=== PATIENT | female | born 1950 | race Caucasian/White ===

== ENCOUNTER → 2016-12-17 | Outpatient (CLI) | payer OTHER ==
[~2016-12-17] MED LIST: CHOL100010 PO; HYDR-5688 PO; MULT-506 PO; ZOLP12.5 PO; ZOLP6.252 PO
== END | disposition home or self-care (01) ==
LOC: C.RDSM 14:55
PROVIDERS: ATTEND Orthopaedic Surgery Sports Medicine
DX: Z09 Encounter for follow-up examination after completed treatment for conditions other than malignant neoplasm (principal); M25.561 Pain in right knee; Z96.651 Presence of right artificial knee joint

== ENCOUNTER → 2017-02-01 | Day surgery (SDC) | payer OTHER ==
[2017-01-21 10:46] VITALS: Ht 175.3 cm; Wt 95.5 kg
[~2017-02-01] VITALS: Ht 175.3 cm; Wt 95.5 kg
[~2017-02-01] MED LIST changes: +500ML BSS 0.3ML EPI 1:1000PF IRRIG ONE; +ACETAMINOPHEN 325 MG TAB PO PRN; +AMVISC PLUS 0.8ML SYRINGE INT OCU ONE; +ATROPINE SULFATE 0.1 MG/ML 5ML SYR IV PRN; +BRIMONIDINE TART 0.2% OP SOLN PER DROP CHARGE ONE; +BSS FLUSH ONE; -CHOL100010 PO; +ENDOCOAT 0.85ML SYRINGE INT OCU ONE; +EpHEDrine SULFATE INJ 50 MG/ML AMP IV PRN; +EpINEphrine INJ 1MG/ML AMP 1 MG/ML AMP ONE; +FENTANYL CITRATE INJ 50 MCG/1 ML 2 ML VIAL ONE; -HYDR-5688 PO; +LACTATED RINGER'S 1000ML 500 ML IV SCH; +LIDOCAINE 4% OP SOLN DROP CHARGE ONE; +LIDOCAINE 4% OP SOLN DROP CHARGE OPR SCH; +LIDOCAINE HCL 1% MPF 2 ML VIAL ONE; +MIDAZOLAM HCL 1 MG/ML 2ML VIAL ONE; +MOXIFLOXACIN OPH SOLN PER DROP CHARGE ONE; +POVIDONE-IODINE OP SOLN 30 ML BTL ONE; +PROPARACAINE 0.5% OP SOLN PER DROP CHARGE OPR SCH; +TOBRAMYCIN/DEXAMETHASONE OPH OINT PER APPLN CHARGE ONE; -ZOLP12.5 PO
[2017-02-01] MEDS: PHENYLEPHRINE HCL 2.5% OP SOLN PER DROP CHARGE OPR SCH ×2 (08:01→08:06)
[2017-02-01] MEDS: TROPICAMIDE 1% OP SOLN PER DROP CHARGE OPR SCH ×2 (08:02→08:07)
[2017-02-01] MEDS: CYCLOPENTOLATE HCL 1% OP SOLN PER DROP CHARGE OPR SCH ×2 (08:03→08:08)
[2017-02-01] MEDS: KETOROLAC 0.5% OP SOLN PER DROP CHARGE OPR SCH ×2 (08:04→08:09)
[2017-02-01] MEDS: MOXIFLOXACIN OPH SOLN PER DROP CHARGE OPR SCH ×2 (08:05→08:15)
--- NOTE | 2017-02-01 08:40 | History & Physical Bridge - SC ---
H&P Re-Evaluation Bridge Note: I have examined the patient, reviewed the History & Physical and in the interval since the performance of the History & Physical I have noted the following changes of clinical significance: No changes noted
--- NOTE | 2017-02-01 09:30 | Discharge Instructions-SurgCtr ---
Discharge Instructions Date of Service Feb 01, 2017. Visit Reason for Visit: Right Eye Cataract Discharge Discharge Diagnosis / Problem: cataract right eye Discharge Goals Goal(s): Improve function Activity Recommendations Activity Limitations: per Instructions/Follow-up section Lifting Limitations: no more than 5 pounds Anesthesia . Post Anesthesia Instructions: If you have had General Anesthesia or IV Sedation: * Do not drive today. * Resume driving when surgeon permits. * Do not make important decisions or sign legal documents today. * Call surgeon for: 1. Temperature elevations greater than 101 degrees F. 2. Uncontrollable pain. 3. Excessive bleeding. 4. Persistent nausea and vomiting. 5. Medication intolerance (nausea, vomiting or rash). * For nausea and vomiting use only clear liquids such as: tea, soda, bouillon until nausea subsides, then gradually increase diet as tolerated. * If you have any concerns or questions, call your surgeon's office. If physician is unavailable and it is an emergency, call 911 or go to the nearest emergency room. . Instructions / Follow-Up Instructions / Follow-Up ACTIVITY RECOMMENDATIONS: * Light activities * You may walk outside, read, watch television. * Mild irritation and blurred vision are common for the first few days, redness around the white part of the eye is common. MEDICATIONS: Resume previous medications unless instructed otherwise by your surgeon. Eye drops (today and tomorrow): Cipro - one drop in operative eye every 2 hours while awake Prednisolone 1% - one drop in operative eye every 2 hours while awake Ketorolac - one drop in operative eye every 2 hours while awake SPECIAL CARE INSTRUCTIONS: * If any problems or concerns, please call Dr. Kevin's office at . * Keep plastic shield taped over eye to sleep at night. * Keep plastic shield taped over eye except to administer eye drops. * Keep plastic shield on until office visit the following day. FOLLOW UP VISIT: Follow-up with Dr. Kevin in the [place] office as scheduled. If not already scheduled, please call the office at . Diet Recommendations Home Diet: resume previous diet Procedures Procedures Performed: Right Cataract Phacoemulsification With Intraocular Lens Implant Pending Studies Studies pending at discharge: no Medical Emergencies . Who to Call and When: Medical Emergencies: If at any time you feel your situation is an emergency, please call 911 immediately. . Non-Emergent Contact Non-Emergency issues call your: Fire And Explosion Investigator . . "Provider Documentation" section prepared by Francisco Kevin.
--- NOTE | 2017-02-01 09:30 | [facility] Post Operative Brief Note ---
Immediate Operative Summary Operative Date Feb 01, 2017. Pre-Operative Diagnosis Cataract right eye Post-Operative Diagnosis same Procedure(s) Performed Right Cataract Phacoemulsification With Intraocular Lens Implant Surgeon Dr Kevin Steam Table Associate Surgeon(s) 0 Estimated Blood Loss 0 Findings cataract right eye Specimens 0 Complication(s) None Disposition Recovery Room / PACU
[2017-02-01 09:33] VITALS: TEMP 36.1
--- NOTE | 2017-02-01 09:34 | Anesthesia Progress Nt - [facility] ---
Anesthesia Post Op Note Date & Time Feb 01, 2017 at 09:34 Vital Signs Pain Intensity: 0 Vital Signs Past 12 Hours Date Time Temp Pulse Resp B/P Pulse Ox O2 Delivery O2 Flow Rate FiO2 02/01/17 07:53 36.3 59 16 108/71 98 Room Air Notes Mental Status: alert / awake / arousable, participated in evaluation Pt Amnestic to Procedure: Yes Nausea / Vomiting: adequately controlled Pain: adequately controlled Airway Patency, RR, SpO2: stable & adequate BP & HR: stable & adequate Hydration State: stable & adequate Anesthetic Complications: no major complications apparent
[2017-02-01 10:22] VITALS: BP 102/67; PULSE 60; O2SAT 96
--- NOTE | 2017-02-01 10:30 | OPERATIVE REPORT ---
DATE OF OPERATION: 02/01/2017 PREOPERATIVE DIAGNOSIS: Cataract, right eye. POSTOPERATIVE DIAGNOSIS: Cataract, right eye. PROCEDURE: Phacoemulsification cataract extraction with intraocular lens placement, right eye. SURGEON: Dr. Kevin. COMPLICATIONS: None. ESTIMATED BLOOD LOSS: None. ANESTHESIA: Topical with sedation. DESCRIPTION OF PROCEDURE: After informed consent was obtained in the holding area the patient was wheeled back to the Operating Room where cardiac monitoring leads and oxygen by nasal cannula was administered by Anesthesia. Gentle IV sedation was given, and the patient's right eye was prepped and draped in usual sterile fashion. A wire lid speculum was placed into the right eye and the operating microscope was swung into position. Using 0.12 forceps and a Supersharp blade a paracentesis port was made 3 o'clock hours away from the 12 o'clock position of patient's right eye. 1% non-preserved Lidocaine was then injected into the anterior chamber for anesthesia. A 2.2 mm keratotome blade was then used to make a shelved clear corneal incision at the 12 o'clock position of her right eye. Amvisc was injected into the anterior chamber and a cystotome and Utrata forceps were used to perform a curvilinear capsulorrhexis. BSS on a hydrodissection cannula was used to hydrodissect the lens nucleus away from the capsular bag. The phacoemulsification handpiece was then used in a stop and chop fashion to remove the lens nucleus. The irrigation and aspiration handpiece was then used to remove the residual cortical material. Amvisc was injected into the capsular bag and anterior chamber and a Bausch \T\ Lomb MX60 20.5 Diopter intraocular lens was injected into the capsular bag. Irrigation and aspiration handpiece was used to remove the residual viscoelastic material. The wounds were hydrated and noted to be watertight. The wire lid speculum was removed from the eye. Vigamox, Brimonidine, and TobraDex ointment were placed on the eye and it was shielded. It should be noted that EndoCoat was used during the case to protect the cornea endothelium. DISPOSITION: The patient tolerated the procedure well and was wheeled to the post anesthesia care unit in stable condition. I attest to the content of the Intraoperative Record and any orders documented therein. Any exceptions are noted below. I attest to the content of the Intraoperative Record and any orders documented therein. Any exceptio ns are noted below.
== END | disposition home or self-care (01) ==
LOC: X.SURG 07:42
PROVIDERS: ATTEND Ophthalmology
DX: H25.11 Age-related nuclear cataract, right eye (principal); Z87.891 Personal history of nicotine dependence

== ENCOUNTER → 2017-02-17 | Outpatient (CLI) | payer OTHER ==
[~2017-02-17] MED LIST changes: -500ML BSS 0.3ML EPI 1:1000PF IRRIG ONE; -ACETAMINOPHEN 325 MG TAB PO PRN; -AMVISC PLUS 0.8ML SYRINGE INT OCU ONE; -ATROPINE SULFATE 0.1 MG/ML 5ML SYR IV PRN; -BRIMONIDINE TART 0.2% OP SOLN PER DROP CHARGE ONE; -BSS FLUSH ONE; -ENDOCOAT 0.85ML SYRINGE INT OCU ONE; -EpHEDrine SULFATE INJ 50 MG/ML AMP IV PRN; -EpINEphrine INJ 1MG/ML AMP 1 MG/ML AMP ONE; -FENTANYL CITRATE INJ 50 MCG/1 ML 2 ML VIAL ONE; -LACTATED RINGER'S 1000ML 500 ML IV SCH; -LIDOCAINE 4% OP SOLN DROP CHARGE ONE; -LIDOCAINE 4% OP SOLN DROP CHARGE OPR SCH; -LIDOCAINE HCL 1% MPF 2 ML VIAL ONE; -MIDAZOLAM HCL 1 MG/ML 2ML VIAL ONE; -MOXIFLOXACIN OPH SOLN PER DROP CHARGE ONE; -POVIDONE-IODINE OP SOLN 30 ML BTL ONE; -PROPARACAINE 0.5% OP SOLN PER DROP CHARGE OPR SCH; -TOBRAMYCIN/DEXAMETHASONE OPH OINT PER APPLN CHARGE ONE
--- NOTE | 2017-02-17 15:55 | MAMMOGRAPHY REPORT ---
BILATERAL DIGITAL SCREENING MAMMOGRAM WITH CAD: 02/17/2017 CLINICAL HISTORY: Routine screening. Patient has no complaints. TECHNIQUE: Bilateral CC and MLO views were obtained. Current study was also evaluated with a Comput er Aided Detection (CAD) system. COMPARISON: Comparison is made to exams dated: 02/04/2016 mammogram, 01/16/2014 mammogram, 01/21/2015 m ammogram, 02/11/2012 mammogram - [facility], 01/02/2011 mammogram, and 08/02/2009 [facility]. BREAST COMPOSITION: The tissue of both breasts is heterogeneously dense, which may obscure small ma sses. FINDINGS: There are scattered stable benign rim calcifications and minimal vascular calcifications i n the breasts. No new suspicious mass, architectural distortion or cluster of microcalcifications i s seen. IMPRESSION: ACR BI-RADS CATEGORY 1: NEGATIVE There is no mammographic evidence of malignancy. A 1 year screening mammogram is recommended. The p atient will receive written notification of the results. Approximately 10% of breast cancers are not detected with mammography. A negative mammographic repor t should not delay biopsy if a clinically suggestive mass is present. Blanca Dinero M.D. ay/:02/17/2017 12:58:39 Implementation Architect: Celso LAZAR(Krystin)(), [facility] letter sent: Normal 1/2 BI-RADS Code: ACR BI-RADS Category 1: Negative
== END | disposition home or self-care (01) ==
LOC: C.MAMM 11:45
PROVIDERS: ATTEND Family Medicine
DX: Z12.31 Encounter for screening mammogram for malignant neoplasm of breast (principal)

== ENCOUNTER → 2017-06-11 | Outpatient (CLI) | payer OTHER ==
--- NOTE | 2017-06-11 10:13 | DIAGNOSTIC IMAGING REPORT ---
ABDOMEN COMPLETE (US) CLINICAL HISTORY: 67 years-old Female with acute diarrhea TECHNIQUE: Multiple real time sonographic images of the abdomen were obtained assessing child-scale appearance. FINDINGS: PANCREAS: The pancreas is partially obscured by bowel gas. The visualized portions of the pancreas are normal without focal lesion or pancreatic duct dilatation. LIVER: The liver demonstrates increased echogenicity suggesting fatty infiltration measuring up to 18.2 cm in length. There is no intrahepatic bile duct dilation, focal lesion, or contour nodularity. There is no ascites. GALLBLADDER: The gallbladder is fluid-filled without cholelithiasis, wall thickening, or pericholecystic fluid. Negative sonographic Cortez's sign. The common bile duct measures 0.3 cm. RIGHT KIDNEY: The right kidney measures 9.6 x 3.9 x 5.1 cm. The parenchymal echotexture and cortical thickness are normal. No nephrolithiasis or hydronephrosis. LEFT KIDNEY: The left kidney measures 9.7 x 5.8 x 5.0 cm. The parenchymal echotexture and cortical thickness are normal. No nephrolithiasis or hydronephrosis. SPLEEN: The spleen measures 8.3 cm and is normal in echotexture. No focal lesions are identified. VASCULATURE: The visualized aorta and inferior vena cava are sub-visualized although appear normal as seen. IMPRESSION: 1. Fatty infiltration of the liver. 2. No evidence of cholelithiasis or acute cholecystitis. 3. No biliary ductal dilatation. The above report was generated using voice recognition software. It may contain grammatical, syntax or spelling errors. Electronically signed by: Edi Song M.D. 06/11/2017 10:12 AM Dictated Date/Time: 06/11/2017 10:08 AM
== END | disposition home or self-care (01) ==
LOC: C.ULTR 08:59
PROVIDERS: ATTEND Family Medicine
DX: R19.7 Diarrhea, unspecified (principal); R10.11 Right upper quadrant pain; K76.0 Fatty (change of) liver, not elsewhere classified

== ENCOUNTER → 2017-12-20 | Outpatient (CLI) | payer OTHER | END | disposition home or self-care (01) | LOC: C.MAMM 11:13 | PROVIDERS: ATTEND Family Medicine | DX: Z13.820 Encounter for screening for osteoporosis (principal); M85.852 Other specified disorders of bone density and structure, left thigh ==

== ENCOUNTER → 2018-03-28 | Day surgery (SDC) | payer OTHER ==
[2018-03-14 08:16] VITALS: Ht 175.3 cm; Wt 85.5 kg
[~2018-03-28] VITALS: Ht 175.3 cm; Wt 85.5 kg
[~2018-03-28] MED LIST changes: +500ML BSSPLUS 0.5ML EPI1:1000 IRRIG ONE; +ACETAMINOPHEN 325 MG TAB PO PRN; +ATROPINE SULFATE 0.1 MG/ML 5ML SYR IV PRN; +ATROPINE SULFATE 1% OP OINT PER APPLICATION CHARGE ONE; +BSS FLUSH ONE; +BUPIVACAINE HCL 0.75% 10 ML AMP/VIAL ONE; +CEFAZOLIN SOD 1 GM VIAL ONE; +DEXAMETHASONE SOD INJ 4 MG/ML VIAL ONE; +EpHEDrine SULFATE INJ 50 MG/ML AMP IV PRN; +EpINEphrine INJ 1MG/ML AMP 1 MG/ML AMP ONE; +FENTANYL CITRATE INJ 50 MCG/1 ML 2 ML VIAL IV PRN; +FENTANYL CITRATE INJ 50 MCG/1 ML 2 ML VIAL ONE; +HYALURONIDASE HUMAN 150 UNIT/ML INJ ONE; +LACTATED RINGER'S 1000ML 500 ML IV SCH; +LIDOCAINE HCL 2% 2 ML VIAL (20MG/ML) ONE; +MIDAZOLAM HCL 1 MG/ML 2ML VIAL ONE; +NEOMYCIN/POLYMYX/DEXAMETH OP OINT PER APP CHARGE ONE; +OCUCOAT 1 ML SOLN IO ONE; +ONDANSETRON INJ 2 MG/ML 2 ML VIAL IV PRN; +ONDANSETRON INJ 2 MG/ML 2 ML VIAL ONE; +POVIDONE-IODINE OP SOLN (SURGERY CNTR CHARGING ONLY) ONE; +PROPARACAINE 0.5% OP SOLN PER DROP CHARGE OPL SCH; +PROPOFOL IV EMULSION 10 MG/ML 20 ML VIAL ONE; +TIMOLOL MALEATE 0.5% OP SOLN PER DROP CHARGE ONE
[2018-03-28] MEDS: PHENYLEPHRINE HCL 2.5% OP SOLN PER DROP CHARGE OPL SCH ×2 (07:23→07:28)
[2018-03-28] MEDS: TROPICAMIDE 1% OP SOLN PER DROP CHARGE OPL SCH ×2 (07:24→07:29)
--- NOTE | 2018-03-28 07:55 | History & Physical Bridge - [place] ---
H&P Re-Evaluation Bridge Note: pt has visually significant vitreous opacities left eye and is having vitrectomy left eye. I have examined the patient, reviewed the History & Physical and in the interval since the performance of the History & Physical I have noted the following changes of clinical significance: No changes noted
--- NOTE | 2018-03-28 08:40 | Discharge Instructions-SurgCtr ---
Discharge Instructions Date of Service March 28, 2018. Visit Reason for Visit: Vitreous Opacities Discharge Discharge Diagnosis / Problem: same Discharge Goals Goal(s): Improve function Activity Recommendations Activity Limitations: per Instructions/Follow-up section Anesthesia . Post Anesthesia Instructions: If you have had General Anesthesia or IV Sedation: * Do not drive today. * Resume driving when surgeon permits. * Do not make important decisions or sign legal documents today. * Call surgeon for: 1. Temperature elevations greater than 101 degrees F. 2. Uncontrollable pain. 3. Excessive bleeding. 4. Persistent nausea and vomiting. 5. Medication intolerance (nausea, vomiting or rash). * For nausea and vomiting use only clear liquids such as: tea, soda, bouillon until nausea subsides, then gradually increase diet as tolerated. * If you have any concerns or questions, call your surgeon's office. If physician is unavailable and it is an emergency, call 911 or go to the nearest emergency room. . Instructions / Follow-Up Instructions / Follow-Up * May take Tylenol if needed for discomfort. * Do NOT remove eye shield. * NO straining, heavy lifting (>15 pounds) or bending below waist. * Avoid getting water or soap directly into operative eye. * Do NOT rub eye. If you experience increasing eye pain not relieved by medication, please contact us immediately at [phone]. If you are unable to reach someone at the above number, call [phone] and ask to speak with the EYE DOCTOR PROCESS CHEMIST. Inform them that you are a Dr. Oneal patient who had recent surgery. Diet Recommendations Home Diet: resume previous diet Pending Studies Studies pending at discharge: no Medical Emergencies . Who to Call and When: Medical Emergencies: If at any time you feel your situation is an emergency, please call 911 immediately. . Non-Emergent Contact Non-Emergency issues call your: J2Ee Architect . . "Provider Documentation" section prepared by Finn Oneal. .
--- NOTE | 2018-03-28 08:40 | [facility] Operative Report ---
Operative Report Date of Service March 28, 2018. Operative Report PREOPERATIVE DIAGNOSIS: Visually significant vitreous opacities, left eye. ICD10 CODE: H43.392 POSTOPERATIVE DIAGNOSIS: same. PROCEDURE: 1. Pars plana vitrectomy, 23 gauge left eye. CPT CODE: 04090 SURGEON: Finn Oneal D.O. COMPLICATIONS: None. ESTIMATED BLOOD LOSS: None. SPECIMENS: None. ANESTHESIA: Retrobulbar block and MAC. INDICATIONS FOR PROCEDURE: Surgery is indicated to decrease risk of vision loss and potentially improve vision. CONSENT: The risks, benefits and alternatives were discussed with the patient including but not limited to decreased visual acuity, failure to achieve desired results, loss of the eye, infection, pain, glaucoma, lens changes, retinal tears, retinal detachment, the need for more procedures, drooping of the eyelid, blindness, and double vision. The patient is aware of risks and consents to the surgery. Consent is signed and on the chart. OPERATION AND FINDINGS: The patient was brought to the operating room where the patient was identified by name, date, and medical record number. The surgical site was confirmed with the informed written consent. The patient was sedated by the anesthesiology team after which a 50:50 mixture of 2% lidocaine and 0.75% bupivacaine with hyaluronidase was administered in a standard retrobulbar fashion. A total of 4 ml was administered without difficulty. The patient was then prepped and draped in the usual sterile manner for retinal surgery. A wire lid speculum was placed and an Vivek 23-gauge trocar cannula system was employed. The inferior temporal trocar cannula was first placed in an angled fashion 3.75mm posterior to the surgical limbus and the infusion cannula was inserted into this cannula after which the intravitreal position was verified prior to turning the infusion on. Two more trocar cannulas were then inserted in an angled fashion, one in the superior temporal, and one in the superior nasal quadrant both 3.75mm posterior to the surgical limbus. A light pipe and vitrector were then introduced into the eye and the BIOM wide angle viewing system was brought into place. Posterior inspection revealed visually significant vitreous opacities centrally. There was a previously treated retinal tear superiorly. Standard core vitrectomy was performed and the vitreous was insured to be totally detached from the posterior pole with the aid of the vitrector. The central vitreous was cleared with the vitrector. At this point scleral depression was performed for 360 degrees and no retinal tears or detachments were noted. The trocar cannulas were then removed and found to be water tight. The intraocular pressure was found to be within normal limits by palpation and subconjunctival injections of Kefzol and dexamethasone were administered inferiorly and superiorly. The wire lid speculum was removed. Maxitrol was applied to the surface of the eye. A light patch and shield were taped over the surface of the eye and the patient left the Operating Room in stable condition having tolerated the procedure well. DISPOSITION: The patient has an appointment the following morning in the Ophthalmology Clinic. The patient is to call immediately if there are any problems overnight. I attest to the content of the Intraoperative Record and any orders documented therein. Any exceptions are noted below.
[2018-03-28 08:42] VITALS: TEMP 36.7
--- NOTE | 2018-03-28 08:50 | Anesthesia Progress Nt - [facility] ---
Anesthesia Post Op Note Date & Time March 28, 2018 at 08:50 Vital Signs Pain Intensity: 0 Vital Signs Past 12 Hours Date Time Temp Pulse Resp B/P (MAP) Pulse Ox O2 Delivery O2 Flow Rate FiO2 03/28/18 08:42 36.7 59 16 122/73 (89) 95 Room Air 03/28/18 07:12 36.7 66 14 102/59 (73) 98 Room Air Notes Mental Status: alert / awake / arousable, participated in evaluation Pt Amnestic to Procedure: Yes Nausea / Vomiting: adequately controlled Pain: adequately controlled Airway Patency, RR, SpO2: stable & adequate BP & HR: stable & adequate Hydration State: stable & adequate Anesthetic Complications: no major complications apparent
[2018-03-28 09:06] VITALS: BP 100/64; PULSE 52; O2SAT 100
== END | disposition home or self-care (01) ==
LOC: X.SURG 06:52
PROVIDERS: ATTEND Ophthalmology
DX: H43.392 Other vitreous opacities, left eye (principal); M19.90 Unspecified osteoarthritis, unspecified site; E78.5 Hyperlipidemia, unspecified; F32.9 Major depressive disorder, single episode, unspecified; Z88.5 Allergy status to narcotic agent; Z90.710 Acquired absence of both cervix and uterus; Z98.41 Cataract extraction status, right eye; Z98.42 Cataract extraction status, left eye; Z91.041 Radiographic dye allergy status; Z86.72 Personal history of thrombophlebitis; Z96.651 Presence of right artificial knee joint; Z86.711 Personal history of pulmonary embolism

== ENCOUNTER → 2018-04-04 | Outpatient (CLI) | payer OTHER ==
[~2018-04-04] MED LIST changes: -500ML BSSPLUS 0.5ML EPI1:1000 IRRIG ONE; -ACETAMINOPHEN 325 MG TAB PO PRN; -ATROPINE SULFATE 0.1 MG/ML 5ML SYR IV PRN; -ATROPINE SULFATE 1% OP OINT PER APPLICATION CHARGE ONE; -BSS FLUSH ONE; -BUPIVACAINE HCL 0.75% 10 ML AMP/VIAL ONE; -CEFAZOLIN SOD 1 GM VIAL ONE; -DEXAMETHASONE SOD INJ 4 MG/ML VIAL ONE; -EpHEDrine SULFATE INJ 50 MG/ML AMP IV PRN; -EpINEphrine INJ 1MG/ML AMP 1 MG/ML AMP ONE; -FENTANYL CITRATE INJ 50 MCG/1 ML 2 ML VIAL IV PRN; -FENTANYL CITRATE INJ 50 MCG/1 ML 2 ML VIAL ONE; -HYALURONIDASE HUMAN 150 UNIT/ML INJ ONE; -LACTATED RINGER'S 1000ML 500 ML IV SCH; -LIDOCAINE HCL 2% 2 ML VIAL (20MG/ML) ONE; -MIDAZOLAM HCL 1 MG/ML 2ML VIAL ONE; -NEOMYCIN/POLYMYX/DEXAMETH OP OINT PER APP CHARGE ONE; -OCUCOAT 1 ML SOLN IO ONE; -ONDANSETRON INJ 2 MG/ML 2 ML VIAL IV PRN; -ONDANSETRON INJ 2 MG/ML 2 ML VIAL ONE; -POVIDONE-IODINE OP SOLN (SURGERY CNTR CHARGING ONLY) ONE; -PROPARACAINE 0.5% OP SOLN PER DROP CHARGE OPL SCH; -PROPOFOL IV EMULSION 10 MG/ML 20 ML VIAL ONE; -TIMOLOL MALEATE 0.5% OP SOLN PER DROP CHARGE ONE
--- NOTE | 2018-04-04 15:25 | MAMMOGRAPHY REPORT ---
BILATERAL DIGITAL SCREENING MAMMOGRAM TOMOSYNTHESIS WITH CAD: 04/04/2018 CLINICAL HISTORY: Routine screening. Patient has no complaints. TECHNIQUE: Breast tomosynthesis in addition to standard 2D mammography was performed. Current study was also evaluated with a Computer Aided Detection (CAD) system. COMPARISON: Comparison is made to exams dated: 02/17/2017 mammogram, 02/04/2016 mammogram, 01/21/2015 ma mmogram, 01/16/2014 mammogram, and 02/11/2012 mammogram - [facility]. BREAST COMPOSITION: The tissue of both breasts is heterogeneously dense, which may obscure small mas ses. FINDINGS: The parenchymal pattern is similar to prior mammograms. There are a few scattered and loo sely grouped stable punctate microcalcifications bilaterally. No developing mass, architectural dist ortion or cluster of suspicious microcalcifications is seen. IMPRESSION: ACR BI-RADS CATEGORY 2: BENIGN There is no mammographic evidence of malignancy. A 1 year screening mammogram is recommended. The pa tient will receive written notification of the results. Approximately 10% of breast cancers are not detected with mammography. A negative mammographic report should not delay biopsy if a clinically suggestive mass is present. Blanca Dinero M.D. ay/:04/04/2018 10:02:45 Mountain Guide: Lulu GRIFFIN)(Geremias), [facility] letter sent: Normal 1/2 BI-RADS Code: ACR BI-RADS Category 2: Benign
== END | disposition home or self-care (01) ==
LOC: C.MAMM 08:10
PROVIDERS: ATTEND Family Medicine
DX: Z12.31 Encounter for screening mammogram for malignant neoplasm of breast (principal)

== ENCOUNTER 2021-04-16 11:27 | Observation (INO) ==
[2021-04-16] MEDS ORDERED: SODIUM CHLORIDE 0.9% 1000ML 1,000 ML IV ONE (12:07)
[2021-04-16 12:09] LABS: Basophils # (auto) 0.03 K/uL (0-0.2); Basophils % (auto) 0.3 %; Eosinophils # (auto) 0.18 K/uL (0-0.5); Eosinophils % (auto) 1.9 %; Hematocrit (blood only) 41.9 % (37-47); Hemoglobin 14.6 g/dL (12.0-16.0); Immature Granulocytes # (auto) 0.02 K/uL (0.00-0.02); Immature Granulocytes % (auto) 0.2 %; Lymphocytes # (auto) 1.94 K/uL (1.2-3.4); Mean Corpuscular Hemoglobin 33.3 pg (25-34); Mean Corpuscular Hgb Conc 34.8 g/dL (32-36); Mean Corpuscular Volume 95.4 fL (80-100); Mean Platelet Volume 10.3 fL (7.4-10.4); Monocytes # (auto) 0.55 K/uL (0.11-0.59); Neutrophils # (auto) 6.52 K/uL (1.4-6.5); Neutrophils % (auto) 70.6 %; Platelet Count 351 K/uL (130-400); RDW Coefficient of Variation 12.8 % (11.5-14.5); RDW Standard Deviation 44.9 fL (36.4-46.3); Red Blood Count 4.39 M/uL (4.2-5.4); White Blood Count 9.24 K/uL (4.8-10.8)
--- NOTE | 2021-04-16 12:27 | Emergency Department Note ---
Impression & Plan Atrial fibrillation with RVR, Palpitations ED Provider Note NAME: MARIA ESTHER YUSUF AGE: 71 SEX: F : 1950 ARRIVES VIA: Walk-In INFORMANT: Patient, ED PROVIDER(S): José Manuel Yeager DO CHIEF COMPLAINT: Palpitations HPI: Patient is a 71-year-old female who presented to the emergency department for palpitations. The patient states that she has noticed palpitations over the course the last few months. She started noticing lower extremity swelling and pain. She also has noticed some shortness of breath and some weight gain. The patient was not seen by her primary care physician for the symptoms. She noticed that the symptoms wax and wane. She did notice using her apple watch that her pulse rate went over 170 bpm one-point. Her apple watch also does note that it is irregular. She is never had a history of atrial fibrillation or other abnormal heart rate in the past. She denies having any fevers. She notices no vomiting or abdominal pain. She does note some chest discomfort at times. She states her symptoms are improved at this time but sometimes worsen with exertion. The patient also notices some shortness of breath with exertion. ROS: See above HPI for pertinent positives & negatives. A total of 10 systems reviewed and were otherwise negative. PAST MEDICAL HISTORY: See Below PAST SURGICAL HISTORY: See Below FAMILY HISTORY: See Below SOCIAL HISTORY: See Below HOME MEDICATIONS: See Below ALLERGIES: See Below VITALS: See Below PHYSICAL EXAMINATION: GENERAL: Patient is awake alert in no acute distress patient is resting comfortably and showing no signs of anxiety EYES: The conjunctivae are clear. The pupils are round and reactive. EARS, NOSE, MOUTH AND THROAT: The nose is without any evidence of any deformity. NECK: The neck is nontender and supple. RESPIRATORY: Normal respiratory effort is noted there is no evidence of wheezing rhonchi or rales CARDIOVASCULAR: Irregular and tachycardic heart sounds were noted to auscultation. No definite murmur was noted. GASTROINTESTINAL: The abdomen is soft. Abdomen is nontender. MUSCULOSKELETAL/EXTREMITIES: There is no evidence of gross deformity full range of motion is noted in the hips and shoulders. SKIN: There is no obvious evidence of any rash. No significant pedal edema was noted. NEUROLOGIC: Patient is awake alert and oriented x3 strength is symmetric patellar reflexes are 2+ bilaterally MEDICAL DECISION MAKING: The patient is a 71-year-old female who presented to the emergency department for an evaluation of palpitations. The patient was found to be in rapid atrial fibrillation upon arrival to the emergency department. She was treated with IV fluids in the emergency department. She was also treated with IV heparin. The patient was reevaluated multiple times. I discussed patient's laboratory and radiographic studies with her. I also discussed the diagnosis of atrial fibrillation with her. She has no known history of atrial fibrillation but giv en her age she may be a candidate for inpatient management as well as further chronic anticoagulation. I discussed her case with the on-call [facility] hospitalist. They have agreed to evaluate the patient in the emergency department for further management and disposition. Triage Nursing notes reviewed. Prior medical records reviewed Vital Signs: reviewed and remarkable for no significant abnormalities Differential diagnosis: Premature contractions, electrolyte abnormality, cardiac dysrhythmia, thyroid dysfunction, pulmonary embolism, infection, gastrointestinal, as well as other pathologies. ER treatment provided: See below Diagnostics interpreted by me: ECG: EKG was obtained in the emergency department. My interpretation is atrial fibrillation with rapid ventricular response at [address] segment abnormalities were noted. There were no PVCs noted. This was compared to a tracing from November 142019. Atrial fibrillation has replaced sinus rhythm compared the previous tracing. Cardiac Monitoring: An order was placed for continuous cardiac monitoring. The monitor shows a rate of 95 bpm with atrial fibrillation rhythm. Laboratory studies: As stated above and show below. Imaging studies: See below Consultation(s): 1315: I discussed this case with Dr. Stratton. He will evaluate the patient in the emergency department for further management. ED COURSE: Procedures: none PDMP:reviewed and no issues Critical Care: I have personally spent greater than 45 minutes of critical care time in the direct management of this patient. This includes bedside care, interpretation of diagnostic studies, and testing, discussion with consultants, patient, and family members, and other required patient management activities. This 45 minutes is in excess of all separately billable procedures. Past Med/Surg History Social History Smoking Status: Never smoker Hx Alcohol Use: Yes Hx Substance Use: No Preferred Language: Maltese Communication Ability: Effective Centrifuge Separator Tender Required: No Beliefs That Will Affect Care: None Current Living Situation: Spouse Feels Safe at Home: Yes Safety Concerns: Feels Safe At This Time Assistive Devices: Glasses Allergies Allergies Allergy/AdvReac Type Severity Reaction Status Date / Time Iodinated Contrast Media Allergy Intermediate IV Verified 04/16/21 12:24 DYE-HIVES scallops Allergy Intermediate HIVES Verified 04/16/21 12:24 oxycodone AdvReac Mild NAUSEA AND Verified 04/16/21 12:24 VOMITING Home Meds Home Medications Medication Instructions Recorded Confirmed multivitamin 1 tab PO DAILY #0 tab 01/21/17 04/16/21 zolpidem 6.25 mg PO HS PRN #0 tab 01/21/17 04/16/21 cholecalciferol (vitamin D3) 25 mcg PO DAILY 11/14/20 04/16/21 [Vitamin D3] omeprazole 20 mg PO DAILY 04/16/21 04/16/21 Results & Data (ED) Vital Signs Vital Signs - 24 hr 04/16/21 11:28 04/16/21 12:10 04/16/21 12:14 Temperature 36.4 C L Temperature Source Oral Pulse Rate 107 H 113 H Pulse Rate from SpO2 Sensor 102 H Respiratory Rate 20 19 Respiratory Effort / Characteristics Non-Labored Respiratory Depth Normal Blood Pressure 152/91 H 149/80 H Blood Pressure Mean 111 103 Pulse Oximetry 96 96 96 Oxygen Delivery Method Room Air Room Air Sepsis Recent Fever Within 48 Hours No Sepsis New/Unexplained Change in Mental Status N/A Sepsis Action Taken by Nursing No Action Required 04/16/21 12:20 04/16/21 13:01 04/16/21 13:38 Temperature Temperature Source Pulse Rate 96 H 91 H 90 Pulse Rate from SpO2 Sensor 89 89 99 H Respiratory Rate 14 27 H 21 Respiratory Effort / Characteristics Respiratory Depth Blood Pressure 131/77 141/106 H Blood Pressure Mean 95 117 Pulse Oximetry 97 96 98 Oxygen Delivery Method Sepsis Recent Fever Within 48 Hours Sepsis New/Unexplained Change in Mental Status Sepsis Action Taken by Nursing 04/16/21 13:40 04/16/21 14:00 04/16/21 14:30 Temperature Temperature Source Pulse Rate 93 H 116 H 85 Pulse Rate from SpO2 Sensor 92 H 105 H 90 Respiratory Rate 18 20 20 Respiratory Effort / Characteristics Respiratory Depth Blood Pressure 135/101 H 126/76 Blood Pressure Mean 112 92 Pulse Oximetry 98 96 97 Oxygen Delivery Method Sepsis Recent Fever Within 48 Hours Sepsis New/Unexplained Change in Mental Status Sepsis Action Taken by Nursing 04/16/21 15:00 04/16/21 15:21 04/16/21 15:31 Temperature Temperature Source Pulse Rate 91 H 96 H 106 H Pulse Rate from SpO2 Sensor 93 H 87 100 H Respiratory Rate 21 31 H 20 Respiratory Effort / Characteristics Respiratory Depth Blood Pressure 121/75 127/75 138/97 Blood Pressure Mean 90 92 110 Pulse Oximetry 97 94 98 Oxygen Delivery Method Sepsis Recent Fever Within 48 Hours Sepsis New/Unexplained Change in Mental Status Sepsis Action Taken by Care Home Medications Current Medication List: was personally reviewed by me Laboratory Data Attestation: I reviewed the patient's lab results. Result diagrams: 04/16/21 11:41 04/16/21 11:41 Lab Results 04/16/21 04/16/21 04/16/21 Range/Units 11:41 11:41 12:10 WBC 9.24 (4.8-10.8) K/uL RBC 4.39 (4.2-5.4) M/uL Hgb 14.6 (12.0-16.0) g/dL Hct 41.9 (37-47) % MCV 95.4 (80-100) fL MCH 33.3 (25-34) pg MCHC 34.8 (32-36) g/dL RDW Std Deviation 44.9 (36.4-46.3) fL RDW Coeff of Lionel 12.8 (11.5-14.5) % Plt Count 351 (130-400) K/uL MPV 10.3 (7.4-10.4) fL Immature Gran % (Auto) 0.2 % Neut % (Auto) 70.6 % Lymph % (Auto) 21.0 % [place] % (Auto) 6.0 % Eos % (Auto) 1.9 % Baso % (Auto) 0.3 % Neut # (Auto) 6.52 H (1.4-6.5) K/uL Lymph # (Auto) 1.94 (1.2-3.4) K/uL [place] # (Auto) 0.55 (0.11-0.59) K/uL Eos # (Auto) 0.18 (0-0.5) K/uL Baso # (Auto) 0.03 (0-0.2) K/uL Immature Gran # (Auto) 0.02 (0.00-0.02) K/uL PT 9.8 (9.0-12.0) Seconds INR 1.0 (0.9-1.1) APTT 23.6 (21.0-31.0) Seconds PTT Ratio 0.9 D-Dimer 870 H* (0-500) ug/L FEU Sodium 136 (136-145) mmol/L Potassium 4.1 (3.5-5.1) mmol/L Chloride 107 (98-107) mmol/L Carbon Dioxide 22 (21-32) mmol/L Anion Gap 6.0 (3-11) BUN 8 (7-18) mg/dl Creatinine 0.78 (0.6-1.2) mg/dl Est Cr Clr Drug Dosing 84.8 ml/min Est GFR ( Amer) 89.9 ml/min Est GFR (Non-Af Amer) 77.6 ml/min BUN/Creatinine Ratio 9.7 L (10-20) Glucose 112 H (70-99) mg/dl Calcium 8.9 (8.5-10.1) mg/dl Magnesium 2.5 H (1.8-2.4) mg/dl Total Bilirubin 0.4 (0.2-1) mg/dl AST 40 H (15-37) U/L ALT 55 (12-78) U/L Alkaline Phosphatase 94 (45-117) U/L Troponin I < 0.015 (0-0.045) ng/ml NT-Pro-B Natriuret Pep 1481 H (0-900) pg/ml Total Protein 8.2 (6.4-8.2) gm/dl Albumin 3.8 (3.4-5.0) gm/dl Globulin 4.4 H (2.5-4.0) gm/dl Albumin/Globulin Ratio 0.9 (0.9-2) Lipase 104 (73-393) U/L TSH 1.800 (0.300-4.500) uIu/ml Specimen Hemolysis COVID-19 Eval Order SARS-CoV-2 (PCR) (Negative) 04/16/21 04/16/21 Range/Units 13:30 13:30 WBC (4.8-10.8) K/uL RBC (4.2-5.4) M/uL Hgb (12.0-16.0) g/dL Hct (37-47) % MCV (80-100) fL MCH (25-34) pg MCHC (32-36) g/dL RDW Std Deviation (36.4-46.3) fL RDW Coeff of Lionel (11.5-14.5) % Plt Count (130-400) K/uL MPV (7.4-10.4) fL Immature Gran % (Auto) % Neut % (Auto) % Lymph % (Auto) % [place] % (Auto) % Eos % (Auto) % Baso % (Auto) % Neut # (Auto) (1.4-6.5) K/uL Lymph # (Auto) (1.2-3.4) K/uL [place] # (Auto) (0.11-0.59) K/uL Eos # (Auto) (0-0.5) K/uL Baso # (Auto) (0-0.2) K/uL Immature Gran # (Auto) (0.00-0.02) K/uL PT (9.0-12.0) Seconds INR (0.9-1.1) APTT (21.0-31.0) Seconds PTT Ratio D-Dimer (0-500) ug/L FEU Sodium (136-145) mmol/L Potassium (3.5-5.1) mmol/L Chloride (98-107) mmol/L Carbon Dioxide (21-32) mmol/L Anion Gap (3-11) BUN (7-18) mg/dl Creatinine (0.6-1.2) mg/dl Est Cr Clr Drug Dosing ml/min Est GFR ( Amer) ml/min Est GFR (Non-Af Amer) ml/min BUN/Creatinine Ratio (10-20) Glucose (70-99) mg/dl Calcium (8.5-10.1) mg/dl Magnesium (1.8-2.4) mg/dl Total Bilirubin (0.2-1) mg/dl AST (15-37) U/L ALT (12-78) U/L Alkaline Phosphatase (45-117) U/L Troponin I (0-0.045) ng/ml NT-Pro-B Natriuret Pep (0-900) pg/ml Total Protein (6.4-8.2) gm/dl Albumin (3.4-5.0) gm/dl Globulin (2.5-4.0) gm/dl Albumin/Globulin Ratio (0.9-2) Lipase (73-393) U/L TSH (0.300-4.500) uIu/ml Specimen Hemolysis COVID-19 Eval Order Covid19 at [facility] SARS-CoV-2 (PCR) NEGATIVE (Negative) Administered Medications Heparin Sodium/Dextrose (Heparin Sodium/Dextrose) 25,000 units in 500 mls @ 28 mls/hr IV .[id number] MERY; Protocol Stop: 05/16/21 13:27 Last Admin: 04/16/21 13:47 Dose: 1,400 units/hr, 28 mls/hr Documented by: [id number] Cosigned by: [id number] Metoprolol Tartrate (Metoprolol Tartrate 25 Mg Tab) 12.5 mg PO BID MERY Stop: 05/16/21 20:59 Last Admin: 04/16/21 18:28 Dose: 12.5 mg Documented by: [id number] Discontinued Medications Heparin Sodium (Porcine) (Heparin Sod (Porcine) 1000 Unit/Ml) 1 units IV NOW ONE Stop: 04/16/21 13:29 Last Admin: 04/16/21 13:48 Dose: 6,000 units Documented by: [id number] Cosigned by: [id number] Heparin Sodium/Dextrose (Heparin Iv Adult Wt-Based Standard With Bolus Protocol) 1 ea IV NOW STA; Protocol Stop: 04/16/21 13:12 Last Admin: 04/16/21 13:53 Dose: 1 ea Documented by: [id number] Sodium Chloride (Nss 1000ml) 1,000 mls @ 999 mls/hr IV .Q1H1M ONE Stop: 04/16/21 13:07 Last Infusion: 04/16/21 17:36 Dose: 0 mls/hr Documented by: [id number] Infusion: 04/16/21 12:45 Dose: 0 mls/hr Documented by: [id number] Admin: 04/16/21 12:14 Dose: 999 mls/hr Documented by: [id number] Prednisone (Prednisone 50 Mg Tab) 50 mg PO 1800 MERY Stop: 04/16/21 18:01 Last Admin: 04/16/21 18:28 Dose: 50 mg Documented by: [id number] Imaging Data Radiologist's Impression: Chest X-Ray 04/16/21 12:01 XR chest 1V portable CLINICAL HISTORY: Chest Pain COMPARISON STUDY: November 14, 2020 FINDINGS: No pneumothorax. No pleural effusion. No large infiltrates or consolidative lesions are seen. Cardiomediastinal silhouette is within normal limits in size. No significant pulmonary vascular congestion.. Osseous structures: unremarkable IMPRESSION: 1. No acute pulmonary process. ACT 112: Negative or not required by law. The above report was generated using voice recognition software. It may contain grammatical, syntax or spelling errors. Electronically signed by: Sharon Parr DO 04/16/2021 1:07 PM Discharge Plan Visit Data Chief Complaint: Tachycardia Stated Complaint: PULSE RATE OVER 100,IRREGULAR,HEADACHE ED Provider: José Manuel Yeager Discharge Problem: Atrial fibrillation with RVR, Palpitations Patient Disposition: Admitted As Inpatient Condition: Good Discharge Instructions Interventions: ED Discharge Assessment Last Done: 04/16/21 16:29
[2021-04-16 12:28] LABS: Alanine Aminotransferase 55 U/L (12-78); Albumin Globulin Ratio 0.9 (0.9-2); Albumin Level 3.8 gm/dl (3.4-5.0); Alkaline Phosphatase 94 U/L (45-117); Aspartate Aminotransferase 40 U/L (15-37); BUN Creatinine Ratio 9.7 (10-20); Bilirubin,Total 0.4 mg/dl (0.2-1); Blood Urea Nitrogen 8 mg/dl (7-18); Calcium 8.9 mg/dl (8.5-10.1); Carbon Dioxide 22 mmol/L (21-32); Chloride 107 mmol/L (98-107); Creatinine Clr Calc Pharmacy 84.8 ml/min; Est GFR (African American) 89.9 ml/min; Est GFR (Non-African American) 77.6 ml/min; Globulin 4.4 gm/dl (2.5-4.0); Glucose 112 mg/dl (70-99); Lipase 104 U/L (73-393); Magnesium 2.5 mg/dl (1.8-2.4); NT Pro B Type Natriuretic Pept 1481 pg/ml (0-900); Potassium 4.1 mmol/L (3.5-5.1); Sodium 136 mmol/L (136-145); Total Protein 8.2 gm/dl (6.4-8.2); Troponin I < 0.015 ng/ml (0-0.045)
[2021-04-16 12:35] LABS: Partial Thromboplastin Ratio 0.9; Partial Thromboplastin Time 23.6 Seconds (21.0-31.0); Prothrombin Time 9.8 Seconds (9.0-12.0)
[2021-04-16 12:56] LABS: D Dimer 870 ug/L FEU (0-500)
--- NOTE | 2021-04-16 13:08 | XRay Report ---
XR chest 1V portable CLINICAL HISTORY: Chest Pain COMPARISON STUDY: November 14, 2020 FINDINGS: No pneumothorax. No pleural effusion. No large infiltrates or consolidative lesions are seen. Cardiomediastinal silhouette is within normal limits in size. No significant pulmonary vascular congestion.. Osseous structures: unremarkable IMPRESSION: 1. No acute pulmonary process. ACT 112: Negative or not required by law. The above report was generated using voice recognition software. It may contain grammatical, syntax o r spelling errors. Electronically signed by: Sharon Parr DO 04/16/2021 1:07 PM
[2021-04-16] MEDS ORDERED: Heparin IV Adult Wt-Based Standard WITH Bolus Protocol IV STA (13:11)
[2021-04-16] MEDS ORDERED: HEPARIN SOD (PORCINE) 1000 UNIT/ML IV ONE (13:28)
[2021-04-16] MEDS: HEPARIN SODIUM/DEXTROSE 25,000 UNITS/500 ML BAG IV SCH (13:47)
--- NOTE | 2021-04-16 13:50 | Electrocardiogram Report ---
Test Reason : Blood Pressure : / mmHG Vent. Rate : 114 BPM Atrial Rate : 081 BPM P-R Int : 000 ms QRS Dur : 080 ms QT Int : 314 ms P-R-T Axes : 000 012 036 degrees QTc Int : 432 ms Poor data quality, interpretation may be adversely affected Atrial fibrillation with rapid ventricular response Nonspecific ST abnormality Abnormal ECG When compared with ECG of 14-NOV-2020 11:48, Atrial fibrillation has replaced Sinus rhythm Vent. rate has increased BY 47 BPM Confirmed by José Manuel Boudreaux ([id number]) on 04/16/2021 1:49:56 PM Referred By: Confirmed By:José Manuel Boudreaux
--- NOTE | 2021-04-16 15:08 | History & Physical Report ---
Date of Service April 16, 2021 Assessment & Plan (1) Atrial fibrillation with RVR: Patient's rate does seem to be better without intervention, blood pressure is 126/76 and pulse is [address] in monitored observation We will start low-dose metoprolol at 12.5 mg every 12 hours Check 2D echo Trend troponins [id number] score is 2, currently on a heparin drip, will need conversation regarding possible transition over to DOAC Further work-up of abnormal D-dimer as noted below We will ask cardiology to evaluate for further recommendations (2) D-dimer, elevated: Patient does have history of previous Covid, elevated D-dimer is concerning for possible pulmonary embolism We will check CT angiogram Patient on heparin drip as noted above, can continue for now History of Present Illness Chief Complaint: Palpitations Primary Care Provider: Mariam Franks MD This is a 71-year-old female with GERD and recent Covid that presents today complaining of palpitations. She is a good historian is accompanied by her . Patient tells me that around September 2020 she was diagnosed with Covid. At samaria t time she had issues with shortness of breath and palpitations but the significantly improved over time. She did have occasional palpitations over the past several months. They seem to be episodic although they did last for some time. She had some pounding in her head along with an accompanying headache. She denies any shortness of breath. She also denied any fevers. Patient did not seek medical attention for these symptoms. She does have an apple watch and she noted that her pulse would be elevated at certain times, sometimes over 170 bpm. She did finally call her physician and was told that if her heart rate is elevated again that she should present to the emergency room for further evaluation. This did in fact happen with a heart rate of 100 and the patient came to the hospital for evaluation. In the ER, she was found to have atrial fibrillation with a rate in the low 100s. She was not given any cardiac medications was hydrated normal saline. Her last pulse is now documented 85. At the time my evaluation, heart rate was around 1001 15 and was not continued atrial fibrillation. Patient was relatively asymptomatic at that time. She was in no cardiopulmonary distress. Allergies Allergy/AdvReac Type Severity Reaction Status Date / Time Iodinated Contrast Media Allergy Intermediate IV Verified 04/16/21 12:24 DYE-HIVES scallops Allergy Intermediate HIVES Verified 04/16/21 12:24 oxycodone AdvReac Mild NAUSEA AND Verified 04/16/21 12:24 VOMITING Home Medications Medication Instructions Recorded Confirmed Type multivitamin 1 tab PO DAILY #0 tab 01/21/17 04/16/21 History zolpidem 6.25 mg PO HS PRN #0 tab 01/21/17 04/16/21 History cholecalciferol (vitamin D3) 25 mcg PO DAILY 11/14/20 04/16/21 History [Vitamin D3] omeprazole 20 mg PO DAILY 04/16/21 04/16/21 History Past Med/Surg History Social History Smoking Status: Never smoker Preferred Language: Andorran Feels Safe at Home: Yes Review of Systems Constitutional: no fever, no chills, no body aches, no fatigue, no weakness and no anorexia Eyes: as per Subjective / HPI Respiratory: no cough, no chest congestion, no dyspnea and no dyspnea on exertion Cardiovascular: + palpitations; no chest pain, no orthopnea, no lightheadedness and no edema Gastrointestinal: no abdominal pain, no nausea, no vomiting, no constipation and no diarrhea/loose stools Genitourinary: no dysuria, no difficulty urinating, no urinary frequency, no urinary hesitancy, no urinary urgency and no flank pain Musculoskeletal: no back pain, no neck pain, no joint pain, no stiffness and no myalgia Integumentary: no rash Neurologic: + headache(s); no gait abnormality, no unsteadiness, no falls and no generalized weakness Physical Exam Constitutional: cooperative; no acute distress Neck: trachea midline, no thyromegaly Respiratory: normal respiratory effort Auscultation: lungs clear to auscultation bilaterally; no crackles, no rales, no rhonchi and no wheezes Cardiovascular: Rate/Rhythm: + tachycardic and + irregularly irregular Heart Sounds: normal S1 and normal S2; no murmur Gastrointestinal (Abdomen): Inspection/Auscultation: abdomen normal to inspection Percussion/Palpation: abdomen soft; abdomen nontender, no guarding, abdomen not rigid and no hepatosplenomegaly Skin: no rashes, warm and dry Results & Data Results & Data ([facility]) Vital Signs (Past 12 Hours) Vital Signs Temp Pulse Resp BP Pulse Ox 04/16/21 14:30 85 20 126/76 97 04/16/21 14:00 116 H 20 135/101 H 96 04/16/21 13:40 93 H 18 98 04/16/21 13:38 90 21 141/106 H 98 04/16/21 13:01 91 H 27 H 131/77 96 04/16/21 12:20 96 H 14 97 04/16/21 12:14 96 04/16/21 12:10 113 H 19 149/80 H 96 04/16/21 11:28 36.4 C L 107 H 20 152/91 H 96 PG Care Time/CCT Total # of Minutes Spent Total Time Spent with Patient: Total time spent is greater than 50% in coordination of care (as documented) at patient's floor/unit and/or counseling patient: Coding Level of Care Code 17170 OBS Care - Level 3 Diagnoses Atrial fibrillation with RVR I48.91 D-dimer, elevated R79.89
[2021-04-16] MEDS ORDERED: ZOLPIDEM TARTRATE 5 MG TAB PO PRN (17:00)
[2021-04-16] MEDS ORDERED: ONDANSETRON INJ 2 MG/ML 2 ML VIAL IV PRN (17:00)
[2021-04-16] MEDS ORDERED: predniSONE 50 MG TAB PO SCH (18:00)
[2021-04-16] MEDS ORDERED: METOPROLOL TARTRATE 25 MG TAB PO SCH (21:00)
[2021-04-16 21:17] LABS: Partial Thromboplastin Ratio 2.1
[2021-04-16 21:21] LABS: Partial Thromboplastin Time 56.1 Seconds (21.0-31.0)
[2021-04-17] MEDS: predniSONE 50 MG TAB PO SCH ×2 (01:41→08:06)
[2021-04-17] MEDS ORDERED: diphenhydrAMINE Capsule 25 MG CAP PO SCH (06:00)
[2021-04-17 06:09] LABS: Hematocrit (blood only) 39.1 % (37-47); Hemoglobin 13.7 g/dL (12.0-16.0); Immature Granulocytes # (auto) 0.01 K/uL (0.00-0.02); Immature Granulocytes % (auto) 0.1 %; Lymphocytes # (auto) 1.06 K/uL (1.2-3.4); Lymphocytes % (auto) 11.2 %; Mean Corpuscular Hemoglobin 32.5 pg (25-34); Mean Corpuscular Volume 92.9 fL (80-100); Mean Platelet Volume 10.4 fL (7.4-10.4); Monocytes # (auto) 0.07 K/uL (0.11-0.59); Monocytes % (auto) 0.7 %; Neutrophils # (auto) 8.36 K/uL (1.4-6.5); Platelet Count 366 K/uL (130-400); RDW Coefficient of Variation 12.8 % (11.5-14.5); RDW Standard Deviation 43.4 fL (36.4-46.3); Red Blood Count 4.21 M/uL (4.2-5.4)
[2021-04-17 06:45] LABS: Partial Thromboplastin Time 52.2 Seconds (21.0-31.0)
[2021-04-17 06:47] LABS: BUN Creatinine Ratio 12.7 (10-20); Calcium 9.1 mg/dl (8.5-10.1); Creatinine Clr Calc Pharmacy 82.4 ml/min; Est GFR (African American) 87.2 ml/min; Est GFR (Non-African American) 75.2 ml/min; Magnesium 2.6 mg/dl (1.8-2.4); Potassium 4.2 mmol/L (3.5-5.1)
[2021-04-17] MEDS ORDERED: OPTIRAY 350 500ml IV ONE (07:13)
--- NOTE | 2021-04-17 07:41 | CT Scan Report ---
CT ANGIOGRAM OF THE CHEST CLINICAL HISTORY: Dyspnea. Atypical chest pain. COMPARISON STUDY: Chest CT dated 05/01/2015. Chest x-ray dated 04/16/2021. TECHNIQUE: Following the IV administration of 120 cc of Optiray 350, CT angiogram of the chest was pe rformed from the upper abdomen to the thoracic inlet utilizing the pulmonary embolus protocol. Images are reviewed in the axial, sagittal, and coronal planes. 3-D MIPS images are created and assessed. T he patient was premedicated for a reported history of contrast allergy. IV contrast was then administ ered without complication. A dose lowering technique was utilized adhering to the principles of NELSON Salcedo. CT DOSE: 303.50 mGy.cm FINDINGS: Thyroid: Imaged portions of the thyroid gland are normal in size and attenuation. Thoracic aorta: The thoracic aorta is normal in caliber and demonstrates standard 3-vessel arch anato my. No dissection is seen. Pulmonary vasculature: The pulmonary trunk is normal in caliber. There are no filling defects identif ied in main, lobar, or segmental pulmonary branches to suggest pulmonary embolus. Heart: The heart is normal in size and without pericardial effusion. Lungs and pleural spaces: There is no airspace consolidation or pleural effusion. Dependent atelectas is is seen bilaterally. The trachea and central airways are clear. There are scattered calcified gran ulomas. Mediastinum: There is no mediastinal lymphadenopathy. Jelena: There are calcified left hilar nodes. No hilar adenopathy is seen. Axillae: There is no axillary lymphadenopathy. Upper abdomen: There is a small hiatal hernia. Partially visualized upper abdominal viscera is otherw ise within normal limits. Skeletal structures: No lytic or blastic bony lesions are seen. IMPRESSION: 1. There is no evidence of pulmonary embolus in the main, lobar, or segmental pulmonary arteries. 2. The lungs are clear. ACT 112: Negative or not required by law. Electronically signed by: Cj Posey M.D. 04/17/2021 7:40 AM
[2021-04-17] MEDS: HEPARIN SODIUM/DEXTROSE 25,000 UNITS/500 ML BAG IV SCH (08:15)
[2021-04-17] MEDS: ACETAMINOPHEN 325 MG TAB PO PRN ×2 (08:20→16:36)
[2021-04-17] MEDS ORDERED: MULTIVITAMIN TAB PO SCH (09:00)
[2021-04-17] MEDS ORDERED: CHOLECALCIFEROL 1,000 UNITS 25 MCG TAB PO SCH (09:00)
[2021-04-17] MEDS ORDERED: PANTOprazole 40 MG TAB PO SCH (09:00)
[2021-04-17] MEDS ORDERED: METOPROLOL TARTRATE 25 MG TAB PO SCH (09:00)
--- NOTE | 2021-04-17 10:13 | Cardiology Consultation ---
Date of Consultation April 17, 2021 Assessment & Plan (1) Atrial fibrillation with RVR: She was tachycardic earlier this morning, but her rate has improved with increased dose of metoprolol tartrate at 25 mg BID. Recommend having patient ambulate the hallways to ensure her rate is adequately controlled with activity. Can titrate beta ulices dose as indicated for rate control. Would continue a rate control strategy until she is on anticoagulation therapy for a minimum of 4 weeks. Cardioversion could then be considered if she remains in atrial fibrillation. She does have an elevated CHADSVASc score of 2 given her age and gender. Long-term anticoagulation therapy is therefore indicated for stroke risk reduction. She has been initiated on Eliquis 5 mg BID and would recommend continuing the medication. Echo was performed earlier today, and the official report is pending. Will arrange outpatient follow-up in Cardiology in 3-4 weeks. Patient was discussed with Dr. Boudreaux, and the plan was made in collaboration with him. History of Present Illness Reason for Consultation: Atrial fibrillation Requesting Physician: Dr. Stratton History of Present Illness Patient is a 71-year-old female with a history of GERD who was admitted yesterday with atrial fibrillation with RVR. This is a new diagnosis for her. She states that on 11/14/21, she had an episode of chest pressure, fluttering sensation in her heart, dizziness, and fatigue. She also noted that her heart rate was elevated up to the 150s on her pulse oximeter. She called her PCP and was advised to go to the ER. Her symptoms had apparently resolved by the time she got to the ER, and she was noted to be in normal sinus rhythm on ECG. Other work-up at that time was unremarkable, and she was deemed stable for discharge without hospital admission. She states that since the episode in October, she has had similar episodes about once a month. Typically, her symptoms last 15 minutes up to several hours in duration. On Wednesday of this week, she had recurrent symptoms, and on this occasion, the symptoms did not resolve on their own. She therefore proceeded to the ER yesterday for further evaluation. On arrival, she was found to be in atrial fibrillation with a rate of 114 bpm on ECG. She was admitted and initiated on PO beta ulices therapy as well as IV heparin. The heparin is now being transitioned to Eliquis. She states that she feels better since admission. Aside from her periodic symptoms of palpitations, she feels well in general. She remains active riding a bike, walking, and fishing. She denies any significant cardiopulmonary symptoms with these activities. She has not noted any lower extremity edema. She denies syncope. She denies abnormal bleeding such as melena, hematochezia, or hematuria. She denies cerebrovascular symptoms. Family history: Mother had a "mitral valve problem" and a pacemaker. Father of a cerebral aneurysm in his 60s. Social history: She is with 3 sons and 3 stepdaughters. Numerous grandchildren. She is a retired nurse. She drinks about 8 alcoholic beverages a week. No smoking but history of secondhand smoke exposure. Allergies Allergy/AdvReac Type Severity Reaction Status Date / Time Iodinated Contrast Media Allergy Intermediate IV Verified 04/16/21 12:24 DYE-HIVES scallops Allergy Intermediate HIVES Verified 04/16/21 12:24 oxycodone AdvReac Mild NAUSEA AND Verified 04/16/21 12:24 VOMITING Home Medications Medication Instructions Recorded Confirmed Type multivitamin 1 tab PO DAILY #0 tab 01/21/17 04/16/21 History zolpidem 6.25 mg PO HS PRN #0 tab 01/21/17 04/16/21 History cholecalciferol (vitamin D3) 25 mcg PO DAILY 11/14/20 04/16/21 History [Vitamin D3] omeprazole 20 mg PO DAILY 04/16/21 04/16/21 History Patient History Social History Smoking Status: Never smoker Hx Alcohol Use: Yes Hx Substance Use: No Preferred Language: [place] Communication Ability: Effective Power Brake Operator Required: No Beliefs That Will Affect Care: None Current Living Situation: Spouse Feels Safe at Home: Yes Safety Concerns: Feels Safe At This Time Assistive Devices: None Review of Systems Review of Systems: All systems reviewed & are unremarkable except as noted in Subjective Physical Exam Physical Exam: Constitutional: Alert, oriented, in no acute distress HEENT: Head is atraumatic and normocephalic. EOMs intact. Sclera non-icteric. Face is symmetric. No perioral cyanosis. Mucous membranes moist Neck: Supple, no JVD Pulmonary: Normal respiratory effort, clear to auscultation throughout Cardiac: Irregularly irregular, normal S1 and S2, no gallops, no rubs, no murmurs Extremities: No edema. No clubbing or cyanosis. Pulses 2+ and symmetric Abdomen: Normal bowel sounds, soft, non-tender, no abdominal masses palpated Skin: Normal skin color, turgor, and pigmentation. No rash or skin lesions Neurological: Oriented to person, place, and time Results & Data ([facility]) Vital Signs (Past 12 Hours) Vital Signs Temp Pulse Pulse Resp BP Pulse Ox 04/17/21 08:34 92 H 04/17/21 08:05 98.6 F 121 H 20 120/69 93 04/17/21 03:47 98.1 F 88 20 100/68 92 04/16/21 23:34 98.1 F 91 H 20 115/77 90 Laboratory Results Laboratory Results WBC 9.50 K/uL (4.8-10.8) 04/17/21 05:30 RBC 4.21 M/uL (4.2-5.4) 04/17/21 05:30 Hgb 13.7 g/dL (12.0-16.0) 04/17/21 05:30 Hct 39.1 % (37-47) 04/17/21 05:30 MCV 92.9 fL (80-100) 04/17/21 05:30 MCH 32.5 pg (25-34) 04/17/21 05:30 MCHC 35.0 g/dL (32-36) 04/17/21 05:30 RDW Std Deviation 43.4 fL (36.4-46.3) 04/17/21 05:30 RDW Coeff of Lionel 12.8 % (11.5-14.5) 04/17/21 05:30 Plt Count 366 K/uL (130-400) 04/17/21 05:30 MPV 10.4 fL (7.4-10.4) 04/17/21 05:30 Immature Gran % (Auto) 0.1 % 04/17/21 05:30 Neut % (Auto) 88.0 % 04/17/21 05:30 Lymph % (Auto) 11.2 % 04/17/21 05:30 [place] % (Auto) 0.7 % 04/17/21 05:30 Eos % (Auto) 0.0 % 04/17/21 05:30 Baso % (Auto) 0.0 % 04/17/21 05:30 Neut # (Auto) 8.36 K/uL (1.4-6.5) H 04/17/21 05:30 Lymph # (Auto) 1.06 K/uL (1.2-3.4) L 04/17/21 05:30 [place] # (Auto) 0.07 K/uL (0.11-0.59) L 04/17/21 05:30 Eos # (Auto) 0.00 K/uL (0-0.5) 04/17/21 05:30 Baso # (Auto) 0.00 K/uL (0-0.2) 04/17/21 05:30 Immature Gran # (Auto) 0.01 K/uL (0.00-0.02) 04/17/21 05:30 PT 9.8 Seconds (9.0-12.0) 04/16/21 12:10 INR 1.0 (0.9-1.1) 04/16/21 12:10 APTT 52.2 Seconds (21.0-31.0) H* 04/17/21 05:30 PTT Ratio 2.0 04/17/21 05:30 D-Dimer 870 ug/L FEU (0-500) H* 04/16/21 12:10 Sodium 137 mmol/L (136-145) 04/17/21 05:30 Potassium 4.2 mmol/L (3.5-5.1) 04/17/21 05:30 Chloride 108 mmol/L (98-107) H 04/17/21 05:30 Carbon Dioxide 22 mmol/L (21-32) 04/17/21 05:30 Anion Gap 7.0 (3-11) 04/17/21 05:30 BUN 10 mg/dl (7-18) 04/17/21 05:30 Creatinine 0.80 mg/dl (0.6-1.2) 04/17/21 05:30 Est Cr Clr Drug Dosing 82.4 ml/min 04/17/21 05:30 Est GFR ( Amer) 87.2 ml/min 04/17/21 05:30 Est GFR (Non-Af Amer) 75.2 ml/min 04/17/21 05:30 BUN/Creatinine Ratio 12.7 (10-20) 04/17/21 05:30 Glucose 163 mg/dl (70-99) H 04/17/21 05:30 Calcium 9.1 mg/dl (8.5-10.1) 04/17/21 05:30 Magnesium 2.6 mg/dl (1.8-2.4) H 04/17/21 05:30 Total Bilirubin 0.4 mg/dl (0.2-1) 04/16/21 11:41 AST 40 U/L (15-37) H 04/16/21 11:41 ALT 55 U/L (12-78) 04/16/21 11:41 Alkaline Phosphatase 94 U/L (45-117) 04/16/21 11:41 Troponin I < 0.015 ng/ml (0-0.045) 04/16/21 22:45 NT-Pro-B Natriuret Pep 1481 pg/ml (0-900) H 04/16/21 11:41 Total Protein 8.2 gm/dl (6.4-8.2) 04/16/21 11:41 Albumin 3.8 gm/dl (3.4-5.0) 04/16/21 11:41 Globulin 4.4 gm/dl (2.5-4.0) H 04/16/21 11:41 Albumin/Globulin Ratio 0.9 (0.9-2) 04/16/21 11:41 Triglycerides 102 mg/dl (0-150) 04/17/21 05:30 Cholesterol 226 mg/dl (0-200) H 04/17/21 05:30 LDL Cholesterol, Calc 147 mg/dl 04/17/21 05:30 VLDL Cholesterol, Calc 20 mg/dl 04/17/21 05:30 HDL Cholesterol 59 mg/dl 04/17/21 05:30 Cholesterol/HDL Ratio 4 04/17/21 05:30 Lipase 104 U/L (73-393) 04/16/21 11:41 TSH 1.800 uIu/ml (0.300-4.500) 04/16/21 11:41 Specimen Hemolysis 04/16/21 11:41 COVID-19 Eval Order Covid19 at [facility] 04/16/21 13:30 SARS-CoV-2 (PCR) NEGATIVE (Negative) 04/16/21 13:30 Chest CTA 04/16/21 07:00 IMPRESSION: 1. There is no evidence of pulmonary embolus in the main, lobar, or segmental pulmonary arteries. 2. The lungs are clear. Chest X-Ray 04/16/21 12:01 IMPRESSION: 1. No acute pulmonary process. Diagnostic Findings ECG: Atrial fibrillation at 114. Nonspecific ST abnormality. Telemetry: Heart rate was elevated up to 130s-160s earlier this morning but has improved to the 70s-80s after receiving 25 mg metoprolol tartrate. PG Care Time/CCT Total # of Minutes Spent Total Time Spent with Patient: Total time spent is greater than 50% in coordination of care (as documented) at patient's floor/unit and/or counseling patient: Coding Level of Care Code 76994 Initial Inpt Care Lvl 3 Diagnoses Atrial fibrillation with RVR I48.91 Time Spent (min) 45
[2021-04-17] MEDS ORDERED: APIXABAN 2.5 MG TAB PO SCH (10:15)
[2021-04-17 12:30] LABS: Lyme Ab IgG w/WB Rflx Negative (Negative); Lyme Ab IgM w/WB Rflx Negative (Negative)
--- NOTE | 2021-04-17 13:00 | XCELERA ---
[id number]
--- NOTE | 2021-04-17 17:46 | Discharge Summary ---
Date of Service April 17, 2021 Admission HPI Per Admitting Provider This is a 71-year-old female with GERD and recent Covid that presents today complaining of palpitations. She is a good historian is accompanied by her . Patient tells me that around September 2020 she was diagnosed with Covid. At that time she had issues with shortness of breath and palpitations but the significantly improved over time. She did have occasional palpitations over the past several months. They seem to be episodic although they did last for some time. She had some pounding in her head along with an accompanying headache. She denies any shortness of breath. She also denied any fevers. Patient did not seek medical attention for these symptoms. She does have an apple watch and she noted that her pulse would be elevated at certain times, sometimes over 170 bpm. She did finally call her physician and was told that if her heart rate is elevated again that she should present to the emergency room for further evaluation. This did in fact happen with a heart rate of 100 and the patient came to the hospital for evaluation. In the ER, she was found to have atrial fibrillation with a rate in the low 100s. She was not given any cardiac medications was hydrated normal saline. Her last pulse is now documented 85. At the time my evaluation, heart rate was around 1001 15 and was not continued atrial fibrillation. Patient was relatively asymptomatic at that time. She was in no cardiopulmonary distress. Admission Exam Per Admitting Provider Constitutional: cooperative; no acute distress Neck: trachea midline, no thyromegaly Respiratory: normal respiratory effort Auscultation: lungs clear to auscultation bilaterally; no crackles, no rales, no rhonchi and no wheezes Cardiovascular: Rate/Rhythm: + tachycardic and + irregularly irregular Heart Sounds: normal S1 and normal S2; no murmur Gastrointestinal (Abdomen): Inspection/Auscultation: abdomen normal to inspection Percussion/Palpation: abdomen soft; abdomen nontender, no guarding, abdomen not rigid and no hepatosplenomegaly Skin: no rashes, warm and dry Principal Diagnosis Atrial fibrillation with rapid ventricular rate Discharge Exam Constitutional well developed and well nourished; no acute distress Respiratory normal respiratory effort, lungs clear to auscultation Cardiovascular Rate/Rhythm: regular rate and + irregularly irregular Heart Sounds: no murmur Extremities: normal capillary refill; no calf tenderness and no pedal edema Gastrointestinal (Abdomen) normal bowel sounds, soft, nontender, no hepatosplenomegaly Skin no rashes, warm and dry Discharge Data Allergies Allergy/AdvReac Type Severity Reaction Status Date / Time Iodinated Contrast Media Allergy Intermediate IV Verified 04/22/21 15:42 DYE-HIVES scallops Allergy Intermediate HIVES Verified 04/22/21 15:42 oxycodone AdvReac Mild NAUSEA AND Verified 04/22/21 15:42 VOMITING Consultations 04/16/21 13:11 ED Decision to Admit Stat 04/16/21 17:00 Consult Cardiology Routine Ordered Studies 04/16/21 07:00 CT angio chest PE protocol Stat Hospital Course (1) Atrial fibrillation with RVR: Sultana Goetz is a 71 year old female observed at [facility] from April 16-2020 due to palpitations. She was diagnosed with new atrial fibrillation with rapid ventricular rate seen on EKG. Echocardiogram and thyroid testing was normal. This was treated with rate control strategy with metoprolol and anticoagulation with intravenous heparin (switched to Eliquis on day of discharge). Please continue metoprolol and Eliquis as prescribed. If you feel dizzy or lightheaded this maybe because you are on too much metoprolol or have converted to normal sinus rhythm, recommend calling your oil well shooter for further advice or in an emergency returning to the ER. (2) D-dimer, elevated: Total Time Total Time Spent Total Time Spent (In Minutes): 35 Total Time Includes: Examination of the Patient, Discharge Planning, Medication Reconciliation and Communication With Other Providers Discharge Plan Discharge Items Patient Disposition: Home - Self-Care Reason For Visit: RAPID AF Discharge Diagnosis: Atrial fibrillation with rapid ventricular rate Condition on Discharge: Good Activity: As commented below Activity Comment: Gradual increase exercise tolerence as able Non-emergency contact: Second Floor Operator Call non-emergency contact if: you have any medication questions and your symptoms worsen Follow-up/Referrals: José Manuel Boudreaux MD [Physician] - (3-4 week follow up for atrial fibrillation) Mariam Franks MD [Primary Care Provider] - (No routine follow up required) Diet: Heart Healthy Addtl Attending Provider Instructions: You were observed at [facility] from [id number], 2021 due to palpitations. You were diagnosed with atrial fibrillation with rapid ventricular rate seen on EKG. Echocardiogram and thyroid testing was normal. This was treated with rate control with metoprolol and anticoagulation with intravenous heparin (switched to Eliquis on day of discharge). Please continue metoprolol and Eliquis as prescribed. If you feel dizzy or lightheaded this maybe because you are on too much metoprolol or have converted to normal sinus rhythm, recommend calling your oil well shooter for further advice or in an emergency returning to the ER. Pending Studies at Discharge: No Stand-Alone Forms: [facility] Medications and DC Order Prescriptions: New apixaban 5 mg tablet 5 mg PO BID Qty: 60 RF: 0 Continued multivitamin Tablet 1 tab PO DAILY Qty: 0 RF: 0 cholecalciferol (vitamin D3) [Vitamin D3] 25 mcg (1,000 unit) Tablet 25 mcg PO DAILY RF: 0 omeprazole 20 mg Tablet,Delayed Release (Dr/Ec) 20 mg PO DAILY RF: 0 No Action metoprolol tartrate 50 mg tablet 25 mg PO BID RF: 0 digoxin 250 mcg (0.25 mg) tablet 250 mcg PO DAILY Qty: 30 RF: 2 Discharge Orders: Discharge Order (Routine); Ordered 04/17/21 Ordered By: Ned Perez/Other Patient Handouts: Understanding Atrial Fibrillation Admission Data Admit Date/Time: 04/16/21 15:35 Attending Provider: Ned Austin Admit Provider: Lionel Stratton Primary Care Provider: Mariam Franks Other Providers: José Manuel Boudreaux Other Interventions: Discharge Summary Assessment (RN) Last Done: 04/17/21 17:58 Coding Level of Care Code 06992 OBS Care - Discharge Diagnoses Atrial fibrillation with RVR I48.91 D-dimer, elevated R79.89
== END 2021-04-17 18:27 | disposition home or self-care (01) ==
LOC: ED 11:27 → 2S 11:27 → SUATTDRO 15:35 → 2S 16:29